=== PATIENT | female | born 1980 | race Caucasian/White ===

== ENCOUNTER → 2019-12-26 15:49 | Outpatient (CLI) | payer BC, SELFPAY ==
--- NOTE | ~2019-12-26 | MM_ITS ---
EXAMINATION: MM screening griselda BI w haleigh HISTORY: Screening mammogram TECHNIQUE: Craniocaudal and mediolateral oblique 3-D tomosynthesis images were obtained and synthetic 2-D images were generated. CAD analysis was submitted and interpreted. COMPARISON: 04/30/2013 BREAST PARENCHYMAL COMPOSITION: The breasts are extremely dense, which lowers the sensitivity of mamm ography. FINDINGS: Scattered benign-appearing calcifications are present. There is no evidence of suspicious m ass, calcification, or architectural distortion to suggest malignancy in either breast. There has bee n no suspicious interval change. IMPRESSION: 1. No mammographic evidence of malignancy. 2. Recommend routine screening mammography beginning at age 40. BI-RADS Category 2: Benign finding(s). Reviewed, dictated and finalized at location A. H FOLDER MACHINE
== END ==
PROVIDERS: Visit Provider Obstetrics & Gynecology
DX: Z12.31 Encounter for screening mammogram for malignant neoplasm of breast (principal)
CPT/HCPCS: 77063; 77067

== ENCOUNTER 2021-01-25 07:47 | Outpatient (CLI) | payer BC, SELFPAY ==
--- NOTE | ~2021-01-25 | US_ITS ---
EXAMINATION: US right upper quadrant EXAM DATE: 01/25/2021 08:11 INDICATION: Abdominal pain and bloating. TECHNIQUE: Multiple grayscale and Doppler images of the abdomen right upper quadrant were obtained (b y a technologist who performed the scan) and subsequently reviewed. There is no prior study for airam madrigal. FINDINGS: The pancreatic head and body are normal in appearance. The pancreatic tail is not visualized. The l iver has normal echogenicity and contour. There are no focal liver lesions identified. There is no evidence of intrahepatic biliary duct dilation. Portal venous flow was seen in the hepatopedal, nor mal direction and has normal Doppler waveform. No right-sided hydronephrosis. Common bile duct measures 3 mm, which is normal. The gallbladder wall is normal in thickness, with ex pected amount of distention. No sonographic evidence of pericholecystic fluid. There is no cholelit hiases. Technologist performing exam reports patient did not demonstrate sonographic Vera's sign. Please note that this sign is less reliable in patients who have received pain medication. IMPRESSION: 1. Unremarkable abdominal ultrasound exam. Reviewed, dictated and finalized at location D. CURER
== END 2021-01-25 07:48 | disposition home or self-care (01) ==
LOC: ANHIMG 07:49
PROVIDERS: Visit Provider Internal Medicine Gastroenterology
DX: R10.9 Unspecified abdominal pain (principal); R19.7 Diarrhea, unspecified; R14.0 Abdominal distension (gaseous)
CPT/HCPCS: 76705

== ENCOUNTER → 2021-09-09 12:33 | Outpatient (CLI) | payer BC, SELFPAY ==
--- NOTE | ~2021-09-09 | MMUS_ITS ---
EXAMINATION: MM diagnostic griselda BI w haleigh, US breast BI complete HISTORY: Right breast lump TECHNIQUE: Bilateral full field ML, MLO and CC and spot right MLO, MLO and CC 3-D tomosynthesis image s were performed and synthetic 2-D images were generated. CAD analysis was submitted and interpreted. High resolution complete bilateral breast ultrasound including all 4 quadrants and subareolar areas of each breast was performed. COMPARISON: 12/26/2019 bilateral screening mammogram 12/2013 right breast ultrasound examination 04/30/2013 bilateral diagnostic mammography and right breast ultrasound BREAST PARENCHYMAL COMPOSITION: The breasts are extremely dense, which lowers the sensitivity of mamm ography. FINDINGS: MAMMOGRAPHIC FINDINGS: Architectural distortion is suggested in the lower outer left breast near the area of complaint left breast lump.. No suspicious mass or architectural distortion is noted elsewhere in either breast. The dense stroma however may obscure masses. Occasional benign calcifications. No malignant calcification, skin thickening or retraction is noted. ULTRASOUND: Right breast: 6:00 4 cm from nipple at area of clinical complaint of breast mass: There is a very irregular hypoech oic 12 x 10 mm mass with tentacle-like extensions. Ultrasound-guided biopsy is recommended. 9:00 periareolar area: 6 x 3 x 4.3 mm irregular hypoechoic mass with internal vascularity; ultrasound -guided biopsy is recommended Left breast: No suspicious mass or shadowing is detected. IMPRESSION: 1. Right breast 6:00 and 9:00 hypoechoic irregular masses 2. Ultrasound-guided biopsy of right breast 6:00 and 9:00 lesions is recommended. BI-RADS category 4, suspicious findings. Dr. Bain telephoned the mammography and ultrasound reports and ultrasound guided biopsy recommendatio n for 6:00 and 9:00 right breast masses on 09/09/2021 at 1407 hours to [facility] outside medical sales representative. (Dr. Jesús Bullock was in surgery; [facility] assured that the message with the related to Dr. Rj Bullock.) Reviewed, dictated and finalized at location B. IMPRESSION: 1. Right breast 6:00 and 9:00 hypoechoic irregular masses 2. Ultrasound-guided biopsy of right breast 6:00 and 9:00 lesions is recommende d. BI-RADS category 4, suspicious findings. Dr. Bain telephoned the mammography and ultrasound reports and ultrasound guide d biopsy recommendation for 6:00 and 9:00 right breast masses [facility] with the related to Dr. Rj Bullock.) IMPRESSION: 1. Right breast 6:00 and 9:00 hypoechoic irregular masses 2. Ultrasound-guided biopsy of right breast 6:00 and 9:00 lesions is recommende d. BI-RADS category 4, suspicious findings. Dr. Bain telephoned the mammography and ultrasound reports and ultrasound guide d biopsy recommendation for 6:00 and 9:00 right breast masses on 09/09/2021 at [facility] (Dr. Rj Bullock was in surgery; [facility] that the message with the related to Dr. Rj Bullock.)
== END ==
PROVIDERS: PCP Physician Assistant; Visit Provider Obstetrics & Gynecology
DX: R92.8 Other abnormal and inconclusive findings on diagnostic imaging of breast (principal); N63.15 Unspecified lump in the right breast, overlapping quadrants
CPT/HCPCS: 76641; 77062; 77066; G0279

== ENCOUNTER 2021-10-27 10:31 | Outpatient (CLI) | payer BC, SELFPAY ==
--- NOTE | 2021-10-27 | ECHO_ITS ---
Patient Info Name: Belle Kay Age: 41 years : 1980 Gender: Female Ht: 63 in Wt: 115 lbs BSA: 1.52 m2 HR: 73 bpm BP: 113 / 75 mmHg Heart Rhythm: Sinus Rhythm Exam Date: 10/27/2021 11:19 AM Exam Location: [facility] Patient Status: Outpatient Admit Date: 10/27/2021 Staff Ordering Physician: Naseem Poole MD Poultry Pathologist: Torres Jolly RDCS Attending Provider: Naseem Poole MD Referring Physician: Zulema RICH; Exam Type: CA echo doppler color flow Study Info Indications C50.911 - Malignant neoplasm of unspecified site of right female breast Complete two-dimensional, color flow and Doppler transthoracic echocardiogram is performed. Summary 1. Complete two-dimensional, color flow and Doppler transthoracic echocardiogram is performed. 2. Normal left venticular systolic function with no regional wall motion abnormalities. 3. No significant valvular disease. Left Ventricle Normal left venticular systolic function with no regional wall motion abnormalities. Left ventricular chamber dimension is normal. Left ventricular systolic function is normal, estimated at 50-55%. There is no increased left ventricular wall thickness. Right Ventricle Right ventricular chamber dimension is normal. Right ventricular systolic function is normal. Left Atria Left atrial chamber dimension is normal. Right Atria Right atrial chamber dimension is normal. Aortic Valve The aortic valve is not well visualized. There is no aortic valve stenosis. There is no aortic valve regurgitation. Pulmonic Valve The pulmonic valve is not well visualized. Mitral Valve Mild calcification of the anterior mitral leaflet. The mitral valve has normal leaflets. There is no mitral valve stenosis. There is trace mitral valve regurgitation. Tricuspid Valve The tricuspid valve leaflets are not well visualized. There is no significant tricuspid valve stenosis. There is trace tricuspid valve regurgitation. Pericardium/Pleural There is no pericardial effusion. Inferior Vena Cava Normal inferior vena cava with >50% collapse upon inspiration consistent with Empty right atrial pressure, Empty. Aorta The aortic root size at the sinus of Valsalva is normal. The prox ascending aorta size is normal. Left Ventricular Outflow Tract Name Value Normal LVOT 2D LVOT Diameter 1.7 cm LVOT Doppler LVOT Peak Gradient 3 mmHg LVOT Mean Gradient 2 mmHg LVOT VTI 19 cm LVOT VTI/AV VTI Ratio 1.0 LVOT Stroke Volume 40 ml LVOT CO 3.4 l/min LVOT CI 2.2 l/min/m2 Mitral Valve Name Value Normal MV Doppler MV Peak Gradient 3 mmHg
== END 2021-10-27 10:32 | disposition home or self-care (01) ==
LOC: ANHCARD 10:35
PROVIDERS: Visit Provider Internal Medicine Hematology & Oncology
DX: C50.111 Malignant neoplasm of central portion of right female breast (principal); Z17.0 Estrogen receptor positive status [ER+]
CPT/HCPCS: 93306

== ENCOUNTER 2022-01-02 16:07 | Emergency (ER) | payer BC, SELFPAY ==
[2022-01-02] VITALS (10 sets, daily range): BP systolic 118–133; BP diastolic 74–109; PULSE 95–111; RESP 12–21; TEMP 36.8; O2SAT 99–100
--- NOTE | ~2022-01-02 | XR_ITS ---
XR chest 1V portable 01/02/2022 16:52 Indication: Left-sided facial numbness after chemotherapy. Procedure: AP portable chest Comparison: No prior studies for comparison. Findings: Heart size normal. No focal air space disease, pulmonary edema, pleural effusion or suspect ed pneumothorax. There are bilateral prominent nipple shadows. Impression: 1: No acute cardiopulmonary disease. Reviewed, dictated and finalized at location B. INS SLINGER Impression: 1: No acute cardiopulmonary disease.
--- NOTE | ~2022-01-02 | CT_ITS ---
EXAMINATION: CT brain wo con DATE: 01/02/2022 16:23 INDICATION: left sided facial numbness/ droop . TECHNIQUE: Computed tomography (CT) of the head was performed without intravenous contrast. The mA wa s adjusted according to patient size. Iterative reconstruction technique was employed. The dose-lengt h product was 605.33 mGy-cm. COMPARISON: None FINDINGS: No acute intracranial hemorrhage or extra-axial fluid collection. No hydrocephalus, mass, or herniation. No acute ischemic infarct. Unremarkable dural venous sinus attenuation. No acute osseous abnormality. The aerated spaces are clear. IMPRESSION: No acute intracranial process. Reviewed, dictated and finalized at location K. RICT REPRESENTATIVE
--- NOTE | 2022-01-02 16:12 | ECG_ITS ---
Measurements Intervals [place] Rate: 87 P: 56 MA: 114 QRS: 62 QRSD: 94 T: 73 QT: 340 QTc: 410 Interpretive Statements SINUS RHYTHM WITH SHORT MA INTERVAL BORDERLINE ECG NO PREVIOUS ECG AVAILABLE FOR COMPARISON Electronically Signed On 01-02-2022 20:13:26 SUPERVISOR FORCE ADJUSTMENT by Tello Kauffman D.O.
[2022-01-02 17:13] LABS: Hematocrit 34.6 % (37.0-47.0); Hemoglobin 11.3 g/dL (12.0-15.0); Mean Corpuscular HGB Conc 32.7 g/dl (32-36); Mean Corpuscular Hemoglobin 30.5 pg (26-34); Mean Corpuscular Volume 93.5 fl (80-100); Platelet Count Result 163 k/mm3 (150-375); Red Cell Distribution Width 14.6 % (11.5-14.5)
[2022-01-02 17:26] LABS: Partial Thromboplastin Time 26.9 SECONDS (22.3-36.8); Prothrombin Time 13.2 Seconds (11.1-14.7)
[2022-01-02 17:29] LABS: Alanine Aminotransferase 98 U/L (6-35); Albumin Level 4.4 g/dL (3.5-5.1); Alkaline Phosphatase 110 U/L (38-126); Anion Gap 12 mmol/L (8-16); Aspartate Amino Transferase 41 U/L (14-36); Bilirubin,Total 0.6 mg/dL (0.2-1.3); Blood Urea Nitrogen 19 mg/dL (7-17); Calcium 9.2 mg/dL (8.4-10.2); Carbon Dioxide 29 mmol/L (22-30); Chloride 94 mmol/L (98-107); Estimated CRCL calculation 76 ml/min; Estimated Glomerular Filt Rate > 60; Glucose 117 mg/dL (65-110); Potassium 3.3 mmol/L (3.4-5.0); Sodium 135 mmol/L (137-145)
--- NOTE | 2022-01-02 17:33 | ED.GENADULT ---
HPI - General Adult General Chief complaint: Neuro Symptoms/Deficit Stated complaint: left side face numb Time Seen by Provider: 01/02/22 16:47 History of Present Illness HPI narrative: 41-year-old female with past medical history of breast CA presents to our department with some tingling on the left side of her face as well as mild facial asymmetry that did not spare the forehead. Symptoms first noticed yesterday evening. 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 Patient recently had an injection of Neulasta as well. Related Data Home Medications Medication Instructions Recorded Confirmed amitriptyline 10 mg tablet mg 11/07/21 dicyclomine 10 mg capsule mg 11/07/21 famotidine 20 mg tablet mg 11/07/21 norgestimate 0.25 mg-ethinyl tablet 11/07/21 estradiol 35 mcg tablet (Estarylla) Allergies Allergy/AdvReac Type Severity Reaction Status Date / Time Sulfa (Sulfonamide Allergy Severe SWELLING Verified 01/02/22 16:16 Antibiotics) latex Allergy Mild RASH Verified 01/02/22 16:16 Review of Systems Review of Systems: CONSTITUTIONAL: Denies fever, chills, or sweats. EYES: Denies visual changes, redness, or discharge. ENT: Denies rhinorrhea, congestion, sore throat, or otalgia. CARDIOVASCULAR: Denies chest pain, palpitations, or edema. RESPIRATORY: Denies cough or dyspnea. GASTROINTESTINAL: Denies abdominal pain, nausea, vomiting, or diarrhea. GENITOURINARY: Denies dysuria or hematuria. SKIN: Denies rash or itching. MUSCULOSKELETAL: Denies back pain, joint pain, or myalgia. NEUROLOGIC: Denies headache, numbness, or weakness. PSYCHIATRIC: Denies anxiety or depression. PMFSH Social History Social History Smoking status: Never smoker Exam Narrative: GENERAL: Well-appearing, well-nourished, and in no acute distress. HEAD: Normocephalic, atraumatic. EYES: PERRLA and EOMI. ENT: Nares clear, no rhinorrhea or epistaxis. Mucous membranes moist. NECK: Supple. CHEST: Clear to auscultation. No respiratory distress. HEART: Regular rate and rhythm. No murmur heard. Normal peripheral pulses. ABDOMEN: Soft, nontender, nondistended, normal active bowel sounds. EXTREMITIES: Normal range of motion. No edema. SKIN: Warm, dry, no rash. NEURO: No focal deficits. Alert and oriented x3., Slight asymmetry of left corner of patient's mouth, slight asymmetry in patient's left eyebrow, slight weakness when clenching eyes closed in the left eyelid PSYCH: Normal mood and affect. 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 Labs have been entered upon arrival and there evidence of mild hypokalemia. We have repleted both potassium and magnesium in our department. Also given steroids and antiviral medication. I do not see any need for further imaging. Patient will follow up with her oncologist and discuss MR of brain. Leukocytosis noted but patient did just have a Neulasta injection. She is stable for DC home. Vital Signs Vital Signs: Vital Signs Temperature 98.3 F 01/02/22 16:14 Pulse Rate 111 H 01/02/22 16:14 Respiratory Rate 18 01/02/22 16:14 Blood Pressure 128/82 01/02/22 16:14 Pulse Oximetry 100 01/02/22 16:14 Temperature 98.3 F 01/02/22 16:14 Pulse Rate 99 01/02/22 17:01 Respiratory Rate 21 H 01/02/22 17:01 Blood Pressure 127/84 01/02/22 17:01 Pulse Oximetry 100 01/02/22 17:01 Lab Data Result diagrams: 01/02/22 17:06 01/02/22 17:06
[2022-01-02 17:41] LABS: Troponin I < 0.012 ng/mL (0.000-0.034)
[2022-01-02 17:45] LABS: Free T4 Free Thyroxine 1.49 ng/mL (0.78-2.19)
[2022-01-02] MEDS: valACYclovir HCL 500 MG TABLET 1000 MG PO (17:45)
[2022-01-02] MEDS: POTASSIUM CHLORIDE 20 MEQ PACKET (FOR LIQUID) 40 MEQ PO (17:46)
[2022-01-02] MEDS: predniSONE 20 MG TABLET 60 MG PO (17:46)
[2022-01-02 17:47] LABS: Basophils Absolute Manual 0.18 K/mm3 (0.0-0.1); Basophils Percent Manual 1 % (0-1); Eosinophils Absolute Manual 0.36 K/mm3 (0.02-0.5); Eosinophils Percent Manual 2 % (0-4); Lymphocytes Absolute Manual 2.88 K/mm3 (1.1-4.5); Monocytes Absolute Manual 0.18 K/mm3 (0.1-0.90); Monocytes Percent Manual 1 % (3-9); Neutrophils Percent Manual 80 % (46-73); Schistocytes None Seen (NORMAL); Total Cells Counted 100
[2022-01-02 17:48] LABS: Platelet Estimate Adequate (Adequate)
[2022-01-02] MEDS: MAGNESIUM SULF 1 GM/D5W 100 ML 1 GM/100 ML BAG IVPB (18:12)
[2022-01-02 19:12] LABS: Magnesium 1.5 mg/dL (1.6-2.3)
[2022-01-02] MEDS: HEPARIN SODIUM LOCK FLUSH 500 UNITS/5 ML VIAL (20:02)
== END 2022-01-02 20:17 | disposition home or self-care (01) ==
PROVIDERS: Emergency Provider Emergency Medicine; PCP Physician Assistant
DX: G51.0 Bell's palsy (principal); R94.31 Abnormal electrocardiogram [ECG] [EKG]
CPT/HCPCS: 36415; 70450; 71045; 80053; 83735; 84439; 84443; 84484; 85025; 85610; 85730; 93005; 96365; 99284; A9270; J1642; J3475; J7512

== ENCOUNTER 2022-08-07 13:30 | Outpatient (RCR) | payer BC, SELFPAY ==
--- NOTE | 2022-05-23 11:55 | PTOPEVAL1 ---
Assessment and note entered by Kaleigh Hancock, PT, CLT Evaluation Information Assessment Status Evaluation Diagnosis lymphedema s/p bilateral mastectomy Onset 03-27-22 Subjective Information since surgery in March, some chest tenderness; is not taking any pain meds; have some swelling in R arm; started therapy in [facility], 2 visits there- they did massage and gave her exercises- isometric shoulder, exercise band and chin tucks; but too far to drive, so wanted to come somewhere closer to home; have about 75% endurance return since treatment; no restrictions in activity level from dr-- progress as tolerated. Reported Pain Level Pain Score Self Report Additional Pain Score Comments pain in past week 1-10 over anterior chest, shoulders, scapular area; always little sore and pain, not related to activity; Assessment PT Clinical Summary Belle has the diagnosis of lymphedema, s/p bilateral mastectomy with R axillary node removal and expanders in place. She had lymphedema treatment for 2 sessions at another facility, in [facility], then requested clinic closer to her home. She continues to have chemotherapy every 3 weeks, through her port. 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 With the evaluation, she has decreased R and L shoulder ROM and strength, with pain and tightness over pec and axilla; circumferential measurements of her R arm, which is dominant, is within 7 cm of her L arm; there is not any fibrotic tissue over her R arm or trunk. Skilled PT services are indicated for therapeutic exercises to increase R and L shoulder ROM and strength; manual therapy to decrease pain and tightness; manual lymph drainage to increase lymph flow and education for self lymph drainage, shoulder exercises, posture correction and compression garment for her to obtain, to manage and prevent lymphedema. Plan of Care Interventions Manual Lymph Drainage,Manual Therapy,Neuro Re- education,Patient/Caregiver Education,Therapeutic Activities,Therapeutic Exercise,Other Other Interventions taping PT Services Indicated Yes Treatment Frequency and 1-2x/wk for 5 weeks Duration
--- NOTE | 2022-07-05 10:58 | PTOPPROG ---
Assessment and note entered by Kaleigh Hancock, PT, CLT Evaluation Information Assessment Status Progress Diagnosis lymphedema s/p bilateral mastectomy Onset 03-27-22 Subjective Information reports: having more neuropathy issues with hands and feet, and balance when first wake up in AM; both shoulders are still tight, L more than R; have problems putting a jacket on--reaching arm out and back to get sleeve on; have a athletic trainer, who is helping with exercise--whole body strengthening; she is doing all of her home activities, but wants to get back to her full, normal strength and activity level; sometimes after dinner, is so tired, have to just sit rest of evening; wants to continue therapy to work on shoulders-- better motion and strength, and not have tightness of shoulders. PAIN:chest tender due to having a fill of breast implant yesterday; both shoulders tight and stiff 0-3/10, feel like L one stuck and catches sometimes; Assessment PT Clinical Summary Belle has received 6 PT sessions. Compared to the initial evaluation: the circumferential measurement of her R arm has increased by 2.7 cm, and arm is without any s/s of lymphedema--no heaviness or achy reports; R and L shoulder active ROM and strength have improved; she continues to report tightness of both shoulders and catching in L shoulder, with issues putting on a jacket, reaching out and back to get arm into sleeve; The goals were partially achieved. Continue PT treatment to increase shoulder ROM and strength, and decrease pain of shoulders. Plan of Care Interventions Hot Pack/Cold Pack,Manual Therapy,Patient/ Caregiver Education,Therapeutic Activities, Therapeutic Exercise,Other Other Interventions taping PT Services Indicated Yes Treatment Frequency and 1x/wk for 7 weeks Duration These treatments will address the objective and functional deficits as defined above. The patient will be advanced safely and appropriately in order for the patient to progress towards his/her prior level of function. Additional exercises will be introduced and as well as a comprehensive home exercise program upon discharge, if needed, ?to ensure carryover of functional gains achieved in the clinic. This treatment plan has be
--- NOTE | 2022-07-14 08:04 | PCPTNOTE ---
Gave Pt non latex theraband due to Pt having a latex allergy.
--- NOTE | 2022-08-11 10:50 | PCPTNOTE ---
This treatment is being continued on visit number [id number]. Please see documentation on both accounts to view progress. Completed interventions, outcomes, and problems have been marked as Inactive to facilitate the copying of the Care plan routine for recurring accounts.
== END 2022-08-11 10:42 | disposition home or self-care (01) ==
LOC: ANHPT 13:30
PROVIDERS: PCP Physician Assistant
DX: I89.0 Lymphedema, not elsewhere classified (principal); C50.911 Malignant neoplasm of unspecified site of right female breast; Z17.0 Estrogen receptor positive status [ER+]
CPT/HCPCS: 97110; 97112; 97140; 97161; 97530

== ENCOUNTER 2022-08-22 14:00 | Outpatient (RCR) | payer BC, SELFPAY ==
--- NOTE | 2022-08-11 11:03 | PCPTNOTE ---
This treatment is being continued on visit number [id number] . Please see documentation on both accounts to view progress. Completed interventions, outcomes, and problems have been marked as Inactive to facilitate the copying of the Care plan routine for recurring accounts.
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
== END 2022-09-18 16:04 | disposition home or self-care (01) ==
LOC: ANHPT 14:00
PROVIDERS: PCP Physician Assistant
DX: I89.0 Lymphedema, not elsewhere classified (principal); C50.911 Malignant neoplasm of unspecified site of right female breast; Z17.0 Estrogen receptor positive status [ER+]
CPT/HCPCS: 97110; 97140

== ENCOUNTER 2023-05-01 10:38 | Outpatient (CLI) | payer BC, SELFPAY ==
[2023-05-01 10:57] LABS: Hematocrit 41.4 % (37.0-47.0); Hemoglobin 13.2 g/dL (12.0-15.0)
== END 2023-05-01 10:39 | disposition home or self-care (01) ==
LOC: ANHLAB 10:40
PROVIDERS: PCP Physician Assistant; Visit Provider Obstetrics & Gynecology
DX: Z01.818 Encounter for other preprocedural examination (principal); N95.0 Postmenopausal bleeding
CPT/HCPCS: 36415; 85014; 85018

== ENCOUNTER 2023-05-04 00:07 | Day surgery (SDC) | payer BC, SELFPAY ==
[2023-04-30 09:15] VITALS: BMI 19.9
--- NOTE | 2023-04-30 09:31 | PC.NURSE ---
Report to the Outpatient Waiting Room, entrance under the green pavilion located off [facility], at time 06:30am on date 05/04/23. Planned Procedure Time: 08:30am. Time changes happen often and if your time is changed the preop area will call you the afternoon before. - You and your visitor will be asked to self-screen and do not enter if you have any COVID symptoms. - A mask is optional within the hospital at this time. Patients may have clear liquids (water, carbonated beverages, clear teas, apple juice) until 3 hours prior to surgery (05:30AM) with a maximum of 20 ounces. - No food from midnight until time of surgery Take the following medications with a SIP of water the morning of surgery: TAKE MEDS EVENING BEFORE DO NOT STOP ANY OF YOUR OTHER PRESCRIPTION MEDICATIONS PRIOR TO SURGERY ?EXCEPT THE FOLLOWING Medications to discontinue per physician VITAMINS/SUPPLEMENTS Date to take last dose TODAY Please no make-up, nail faroese, hairspray, perfume, deodorant, or body powder the day of surgery. No jewelry (including any body piercings) or valuables the day of surgery, leave them at home. Please take a shower or bath the night before, or the morning of, surgery with an antibacterial soap. Wear comfortable, loose fitting clothing. - Jewelry must be removed prior to entering the operating room. Rings and piercings that are not removed may be cut off. - The hospital will not accept responsibility for valuables. - Please leave all valuables, including medications, at home the day of surgery. If you are going home after surgery, a licensed paratransit driver must drive you home. - NO public transportation without another adult if you receive anesthesia. - We recommend that an adult stay with you for 24 hours following discharge. - We also recommend that you do not drive, make important decision, drink alcoholic beverages, or take any drugs that were not prescribed by your health care provider for at least 24 hours after your discharge time. Follow any additional instructions given to you from your surgeon. If you or anyone in your household have experienced Covid symptoms in the past week, please notify your surgeon or the nurse liaison at the phone number below for possible testing. Telephone instructions given to PATIENT and asked if any additional questions and then verbalized understanding. Patient advised to call surgeon office or pre surgery nurse liaison [phone] if any additional questions.
--- NOTE | 2023-05-02 06:16 | PM.IMHP ---
H&P: HPI History of Present Illness Date/Time: 05/02/23 06:16 Chief Complaint: postmenopausal bleeding Narrative: this is a 43-year-old female has postmenopausal the chemotherapy admitted for hysteroscopy dilatation curettage secondary to unexpected vaginal bleeding. She has a history of breast cancer and is postmenopausal by chemotherapy. She will undergo hysteroscopy/ dilatation curettage. Risks and benefits reviewed including min exclusive of , aspiration pneumonia, bleeding, transfusion, perforation injury to bowel, bladder, ureters, or other internal organs with need for open laparotomy. She received the [employer] handout entitled hysteroscopy as well as dilatation curettage respectively. She had all questions answered. She asked to proceed [facility] Social History Social History Smoking status: Never smoker Second hand tobacco smoke exposure: No Alcohol intake: current Drinks per week: 1 Substance use: never Substance use type: does not use Living arrangements: with family Spiritual care concerns: No Meds Home Medications and Allergies Home Medications Medication Instructions Recorded Confirmed Type dicyclomine 10 mg capsule 10 mg PO PRN PRN Stomach Upset 11/07/21 04/30/23 History famotidine 20 mg tablet 20 mg PO DAILY 11/07/21 04/30/23 History ascorbate calcium (vitamin C) 500 500 mg PO DAILY 04/30/23 04/30/23 History mg tablet calcium phos,tribasic 260 mg-D3 25 1 tablet PO DAILY 04/30/23 04/30/23 History mcg-herbal 50 mg chewable tablet (Alive Calcium-Vitamin D3) ergocalciferol (vitamin D2) 1,250 50,000 unit PO USEASDIRECTD 04/30/23 04/30/23 History mcg (50,000 unit) capsule omeprazole 20 mg capsule,delayed 20 mg PO DAILY 04/30/23 04/30/23 History release tamoxifen 20 mg tablet 20 mg PO DAILY 04/30/23 04/30/23 History venlafaxine 37.5 mg 75 mg PO DAILY 04/30/23 04/30/23 History capsule,extended release 24 hr Allergies Allergy/AdvReac Type Severity Reaction Status Date / Time Sulfa (Sulfonamide Allergy Severe SWELLING Verified 04/30/23 09:17 Antibiotics) latex Allergy Mild RASH Verified 04/30/23 09:17 surgical glue AdvReac Intermediate Rash Uncoded 04/30/23 09:17 Exam Const: General: cooperative, healthy appearing and comfortable Nutritional Appearance: average body habitus Orientation/consciousness: oriented to person, oriented to place and oriented to time Resp: Effort & Inspection: normal respiratory effort Cardio: Rate: regular rate Rhythm: regular rhythm Heart sounds: S1 normal heart sound present and S2 normal heart sound present GI: Inspection: normal to inspection : External Female Exam: normal external appearance Speculum Exam - Vagina: normal appearance of the vagina Speculum Exam - Cervix: normal appearance of the cervix Bimanual exam- vagina & uterus: soft Bimanual Exam- Adnexa, other: normal adnexae Assessment and Plan Assessment and plan (1) Postmenopausal bleeding: Code(s): N95.0 - Postmenopausal bleeding Status: Acute Plan hysteroscopy/dilatation and curettage
[2023-05-04] MEDS: ACETAMINOPHEN 500 MG TABLET 1000 MG PO (06:56)
--- NOTE | 2023-05-04 07:06 | WPDHPUPDATE1 ---
History and Physical Update Update Date/Time: 05/04/23 07:06 History and Physical has been reviewed, including an updated exam of the patient. There are NO changes in the patient's condition. Risks, benefits, and alternatives have been discussed and questions answered. Patient agrees to proceed with procedure.
[2023-05-04] MEDS: LACTATED RINGERS 1,000 ML 30 ML IV CONT (07:31)
[2023-05-04 07:32] VITALS: BP 104/72; PULSE 79; RESP 16; TEMP 36.4; O2SAT 100
--- NOTE | 2023-05-04 07:48 | WPDANESEPPF ---
Anes - Initial Pre Proc Eval Procedure: Operation Date: 05/04/23 08:30 Proposed Procedures p Hysteroscopy Dilation and Curettage - Bandar Bullock MD Date/Time: 05/04/23 07:48 Surgeon: Bandar Bullock MD Pre Op Diagnosis: Post Menopausal Bleed, Hx of Breast Ca Patient Data Age: 43 Gender: F Height: 1.6 m Weight: 52.1 kg Last Vital Signs Temp 36.4 C 05/04/23 07:32 Pulse 79 05/04/23 07:32 Resp 16 05/04/23 07:32 BP 104/72 05/04/23 07:32 Pulse Ox 100 05/04/23 07:32 O2 Del Method Room Air 05/04/23 07:32 Allergies Allergy/AdvReac Type Severity Reaction Status Date / Time Sulfa (Sulfonamide Allergy Severe SWELLING Verified 04/30/23 09:17 Antibiotics) latex Allergy Mild RASH Verified 04/30/23 09:17 surgical glue AdvReac Intermediate Rash Uncoded 04/30/23 09:17 Home Medications Medication Instructions Recorded Confirmed Type dicyclomine 10 mg capsule 10 mg PO PRN PRN Stomach Upset 11/07/21 04/30/23 History famotidine 20 mg tablet 20 mg PO DAILY 11/07/21 04/30/23 History ascorbate calcium (vitamin C) 500 500 mg PO DAILY 04/30/23 04/30/23 History mg tablet calcium phos,tribasic 260 mg-D3 25 1 tablet PO DAILY 04/30/23 04/30/23 History mcg-herbal 50 mg chewable tablet (Alive Calcium-Vitamin D3) ergocalciferol (vitamin D2) 1,250 50,000 unit PO USEASDIRECTD 04/30/23 04/30/23 History mcg (50,000 unit) capsule omeprazole 20 mg capsule,delayed 20 mg PO DAILY 04/30/23 04/30/23 History release tamoxifen 20 mg tablet 20 mg PO DAILY 04/30/23 04/30/23 History venlafaxine 37.5 mg 75 mg PO DAILY 04/30/23 04/30/23 History capsule,extended release 24 hr hydrocodone 5 mg-acetaminophen 325 1 tablet PO Q4H PRN pain #14 tabs 05/04/23 Rx mg tablet pregabalin 25 mg capsule 25 mg PO BID 05/04/23 05/04/23 History Patient hx anesthesia problems: none Family hx anesthesia problems: none Results Review: All pre-operative results and documents have been reviewed as part of the pre-operative evaluation. [facility] Surgical History Surgical History (Updated 05/04/23 @ 07:48 by Bandar Vick MD) History of mastectomy Social History Social History Smoking status: Never smoker Second hand tobacco smoke exposure: No Alcohol intake: current Drinks per week: 1 Substance use: never Substance use type: does not use Living arrangements: with family Spiritual care concerns: No Anes - Eval Final PreProcedure Day of Procedure 05/04/23 07:48 Patient weight: thin Heart: regular rate and rhythm Lungs: clear to auscultation Airway: Mallampati scale class II Neurological: alert and oriented Last oral intake: >/= 8 hours ASA classification: II Emergent: no Anesthetic plan: proceed Anesthesia type and monitoring: general GIVS and standard monitoring Results Review: All pre-operative results and documents have been reviewed as part of the pre-operative evaluation. Informed Consent: The patient's anesthetic plan and its attendant risks and benefits were discussed with the patient/family/POA. Questions were solicited and answers provided to the satisfaction of the patient/family/POA.
[2023-05-04] MEDS: SCOPOLAMINE 1 MG PATCH 1 PATCH TRANSDERM (08:45)
[2023-05-04] MEDS: LIDOCAINE HCL 1% LOCAL INJ 10 ML VIAL INFILTRATE (09:00)
--- NOTE | 2023-05-04 09:05 | W.PM.PROC2 ---
Procedure Note - Detailed Date of Procedure 05/04/23 Pre-op Diagnosis Post Menopausal Bleed, Hx of Breast Ca Post-op Diagnosis Same Procedure Performed Hysteroscopy / dilatation curettage Surgeon Bandar Bullock MD Anesthesia MAC and Local Indications 43-year-old female with postmenopausal bleeding Findings benign atrophic appearing endometrium Description of Procedure patient prepped draped in sterile fashion. Under excellent IV sedation weighted speculum placed in posterior fornix vagina. Anterior lip the cervix grasped with single-tooth tenaculum. 2.5cc 1% xylocaine anesthesia placed at 2, 4, 8, 10:00 a.m. of the cervix. Uterus sounded 8cm. Serial dilatation with fragmented dilators performed followed by passage of TVT hysteroscope normal saline as visualizing medium. Each fallopian tube os could be seen the endometrium appeared atrophic as would be expected in a patient who was postmenopausal. Uterus was scraped over the entire 360? removing minimal amount of tissue. Instruments were withdrawn the patient was awakened and went to recovery in satisfactory condition. All sponge, needle, instrument counts were correct. There were no immediate complications Estimated Blood Loss 5 Drains No Packing No Pathology Yes Complications No immediate complications Condition Stable Disposition PACU
[2023-05-04 09:08] VITALS: BP 115/66; PULSE 67; RESP 20
[2023-05-04 09:30] VITALS: BP 114/64; PULSE 68; RESP 20
[2023-05-04 10:00] VITALS: BP 114/79; PULSE 76; RESP 20
[2023-05-04 10:15] VITALS: BP 125/74; PULSE 69; RESP 20
== END 2023-05-04 10:23 | disposition home or self-care (01) ==
PROVIDERS: PCP Physician Assistant; Visit Provider Obstetrics & Gynecology
PROC: 0U5B8ZZ Destruction of Endometrium, Via Natural or Artificial Opening Endoscopic (ICD-10-PCS; CPT 58563; principal; 2023-05-04 08:30)
DX: N95.0 Postmenopausal bleeding (principal); N85.8 Other specified noninflammatory disorders of uterus; Z79.810 Long term (current) use of selective estrogen receptor modulators (SERMs); Z79.891 Long term (current) use of opiate analgesic; Z85.3 Personal history of malignant neoplasm of breast
CPT/HCPCS: 58558; 88305; A9270; J1100; J2250; J2405; J2704; J3010; J7120